=== PATIENT | male | born 1995 | race Caucasian/White ===

== ENCOUNTER 2021-11-20 12:09 | Observation (INO) | payer OTHER ==
[~2021-11-20] VITALS: Ht 195.6 cm; Wt 122.5 kg
[2021-11-20 13:38] LABS: HEMOGLOBIN 15.1 gm/dl (14.0-17.5); RED BLOOD COUNT 5.26 M/UL (4.20-5.50); WHITE BLOOD COUNT 10.1 K/UL (4.5-11.0)
[2021-11-20 15:05] LABS: BUN/CREATININE RATIO 12 (0-10)
[2021-11-22 04:45] LABS: HEMOGLOBIN 14.6 gm/dl (14.0-17.5); RED BLOOD COUNT 5.1 M/UL (4.20-5.50); WHITE BLOOD COUNT 12.4 K/UL (4.5-11.0)
[2021-11-22 05:05] LABS: BUN/CREATININE RATIO 14 (0-10)
[2021-11-23 06:26] LABS: HEMOGLOBIN 14.5 gm/dl (14.0-17.5); RED BLOOD COUNT 4.98 M/UL (4.20-5.50); WHITE BLOOD COUNT 12.3 K/UL (4.5-11.0)
[2021-11-23 06:45] LABS: BUN/CREATININE RATIO 12 (0-10)
[2021-11-23] MEDS ORDERED: VISTARIL25 MG PO (10:38)
[2021-11-23] MEDS ORDERED: TOPAMAX25 MG PO (10:38)
[2021-11-23] MEDS ORDERED: ASPIRIN EC81 MG PO (10:44)
[2021-11-23] MEDS ORDERED: ATORVASTATIN CA20 MG PO (10:44)
== END 2021-11-23 12:39 | disposition home or self-care (01) ==
LOC: ER1 12:09 → CDU 11-22 13:14 → MED SURG 4 11-22 13:14 → 3 EAST 11-22 18:36 → MED SURG 4 11-22 20:57
PROVIDERS: Emergency Medicine; ADMIT Internal Medicine
DX: R47.01 Aphasia (principal); R13.10 Dysphagia, unspecified; Z20.822 Contact with and (suspected) exposure to COVID-19; F41.9 Anxiety disorder, unspecified; G43.909 Migraine, unspecified, not intractable, without status migrainosus; F17.210 Nicotine dependence, cigarettes, uncomplicated; R94.6 Abnormal results of thyroid function studies; Z88.1 Allergy status to other antibiotic agents; Z88.5 Allergy status to narcotic agent
CPT/HCPCS: 70450; 70553; 71045; 80048; 80053; 80061; 80307; 82550; 82553; 82607; 83036; 83735; 83874; 84439; 84443; 84484; 85025; 85652; 86140; 93005; 96374; 96375; 99285; A9577; G0378; J0780; J1200; J1885; J2270; J2405; Q9967; U0002